=== PATIENT | female | born 1960 | race Caucasian/White ===

== ENCOUNTER → 2024-05-30 | Outpatient (CLI) | payer BC, SELFPAY ==
[2024-05-30 12:43] LABS: Basophils % (Auto) 1 % (0-2.5); Eosinophils # (Auto) 0.2 Thou/mm3 (0.0-0.5); Eosinophils % (Auto) 3 % (0-10); Hematocrit 43.2 % (36.0-46.0); Hemoglobin 14.6 g/dL (12.0-16.0); Immature Granulocytes % (Auto) 0 % (0-0); Immature Granulocytes Auto 0.01 Thou/mm3 (0.00-0.00); Lymphocytes # (Auto) 2.5 Thou/mm3 (1.0-4.8); Lymphocytes % (Auto) 42 % (10-50); Mean Corpuscular HGB Conc 33.8 g/dl (31.0-37.0); Mean Corpuscular Hemoglobin 29.7 pg (25.0-35.0); Mean Corpuscular Volume 88 fL (80-100); Monocytes # (Auto) 0.6 Thou/mm3 (0.0-0.8); Monocytes % (Auto) 10 % (0-12); Neutrophils # (Auto) 2.7 Thou/mm3 (1.8-7.7); Neutrophils % (Auto) 45 % (37-80); Nucleated Red Blood Cell % 0 /100 WBC (0); Platelet Count 263 Thou/mm3 (140-440); RDW Standard Deviation 42.5 fL (36.4-46.3); Red Blood Count 4.91 Miln/mm3 (4.00-5.20)
[2024-05-30 12:49] LABS: Glucose Estimated Average 126 mg/dL (80-131)
[2024-05-30 12:56] LABS: Alanine Aminotransferase 40 U/L (10-49); Albumin, Serum 4.4 gm/dL (3.4-4.8); Albumin/Globulin Ratio 1.6 (1.2-2.2); Alkaline Phosphatase 59 U/L (46-116); Anion Gap 10 (7-16); Aspartate Amino Transferase 32 U/L (0-34); BUN/Creatinine Ratio 20 Ratio (12-20); Bilirubin,Total 0.5 mg/dL (0.3-1.2); Blood Urea Nitrogen 14 mg/dL (9-23); Calcium 9.7 mg/dL (8.3-10.6); Calcium (Corrected) 9.7 mg/dL (8.5-10.1); Carbon Dioxide 26.9 mMol/L (20.0-31.0); Cardiac Risk Estimate 3.6 RATIO (3.7-5.6); Chloride 106 mMol/L (98-107); Cholesterol 205 mg/dL (132-200); Creatinine (Component) 0.7 mg/dL (0.6-1.3); Globulin 2.8 gm/dL (2.3-3.5); Glucose 105 mg/dL (74-106); HDL Cholesterol 57 mg/dL (40-60); LDL Cholesterol,Calculated 107 mg/dL (0-130); Osmolality,Calculated 285 (275-295); Potassium 4.1 mMol/L (3.4-5.1); Sodium 143 mMol/L (136-145); Total Protein 7.2 gm/dL (5.7-8.2); Triglycerides 204 mg/dL (30-150); eGFR > 60 See Note
[2024-05-30 12:57] LABS: Thyroid Stimulating Hormone 2.76 uIU/mL (0.55-4.78)
== END | disposition home or self-care (01) ==
LOC: COPL 11:10
PROVIDERS: PCP Internal Medicine; Referring Provider Internal Medicine; Visit Provider Internal Medicine
DX: I10 Essential (primary) hypertension (principal); R73.03 Prediabetes; R74.01 Elevation of levels of liver transaminase levels
CPT/HCPCS: 36415; 80053; 80061; 83036; 84443; 85025

== ENCOUNTER 2024-11-21 09:41 | Emergency (ER) | payer SELFPAY ==
[2024-11-21 09:42] VITALS: BP 189/111; PULSE 99; RESP 16; TEMP 36.8; O2SAT 95
[2024-11-21 09:43] VITALS: BMI 37.5
--- NOTE | 2024-11-21 09:51 | PD.EDMEDCL ---
ED Medical Clearance RME/HPI General Chief complaint: Medical Clearance Stated complaint: MEDICAL CLEARANCE Time Seen by Provider: 11/21/24 09:51 Arrival date/time: 11/21/24 09:41 Limitations: no limitations RME / HPI RME / HPI Narrative: 64 year old female with history of hypertension and medication noncompliance presents to the ED BIB [facility] for medical clearance for incarceration today. Per officers, blood pressure while in the [facility] intake was elevated and were advised to bring the patient to the ED for further evaluation/management. Per [facility] paperwork, blood pressure was 191/108, 189/112, 177/111, and 182/114. In the ED, patient only complains of her throat feeling dry. Otherwise no other associated symptoms or complaints reported. Denies fevers, chills, chest pain, cough, shortness of breath, abdominal pain, n/v/d, or urinary symptoms. Patient reports she previously was on multiple blood pressure medications and two that she can recall are Metropolol and Amlodipine. States she last took her 10mg Amlodipine this morning. Related Information Home Medications ?Medication ?Instructions ?Recorded ?Confirmed metoprolol succinate 100 mg 100 mg PO QDAY 05/21/19 05/21/19 tablet,extended release 24 hr Previous Rx's ?Medication ?Instructions ?Recorded amlodipine 10 mg tablet 10 mg PO QDAY HTN #30 tabs 07/04/20 azithromycin 250 mg tablet See Rx Instructions PO .COMPLEX #6 07/04/20 tabs etodolac 400 mg tablet 400 mg PO BID PRN pain #30 tabs 11/08/23 lidocaine 4 % topical patch 1 patch topical QDAY PRN pain #30 11/08/23 (Lidocaine Pain Relief) ea Allergies Allergy/AdvReac Type Severity Reaction Status Date / Time shrimp Allergy Severe SOB Verified 11/21/24 09:47 latex Allergy RASH Verified 11/21/24 09:47 glove powder Allergy Severe Rash Uncoded 11/08/23 14:32 Review of Systems Review of Systems Systems Reviewed: All systems reviewed, normal except as documented Past Medical History Past Medical History CARDIAC: Positive Cardiac Disorders and Hypertension; Negative Congestive Heart Failure RESPIRATORY: Negative Chronic Obstructive Pulmonary Disease (COPD) GENITOURINARY: Negative Renal Disease ENDOCRINE: Negative Diabetes Mellitus Type 1 or Diabetes Mellitus Type 2 Surgical History SURGICAL: Positive Section Social History SMOKING STATUS: Former smoker ED Exam General Limitations: Present no limitations General appearance: Present alert and in no apparent distress Head Head exam: Present atraumatic Eye Eye exam: Present normal appearance, PERRL and EOMI ENT ENT exam: Present normal exam, normal oropharynx and mucous membranes moist Neck Neck exam: Present normal inspection, full ROM and trachea midline Chest Chest inspection: Present normal inspection and symmetric chest wall rise Respiratory Respiratory exam: Present normal lung sounds bilaterally Cardiovascular Cardiovascular exam: Present regular rate, normal rhythm and normal heart sounds Extremities Exam Extremities exam: Present normal inspection and full ROM Neurological Exam Neurological exam: Present alert, oriented X3 and CN II-XII intact Psychiatric Psychiatric exam: Present normal affect and normal mood Skin Skin exam: Present warm, dry, intact and normal color Course Quality Measures none Orders Category Date Time Status Metoprolol Succinate Xl [Toprol Xl] Med 11/21/24 09:52 Discontinued 100 mg PO X1 ONE Vital Signs Vital signs: Vital Signs Temperature 98.2 F 11/21/24 09:42 Pulse Rate 99 11/21/24 09:42 Respiratory Rate 16 11/21/24 09:42 Blood Pressure 189/111 H 11/21/24 09:42 Pulse Oximetry (%) 95 11/21/24 09:42 Oxygen Delivery Method Room Air 11/21/24 09:42 Pulse ox is 95% on room air which is adequate. Medical Clearance [facility] Narrative MDM Narrative:: Lillian Osorio am scribing for and in the presence of Dr. Tom. Patient p/w elevated blood pressure, however, asymptomatic. Patient has not taken BP meds in some time. Given that she is asymptomatic, no FNDs, do not susupect HTN emergency, acs, dissection. Patient would like her home dose of blood pressure meds provided, and will follow up with pcp as an outpatient. Patient medically cleared for incarceration. Patient data External records reviewed:: [facility] previous records Clinical information provided by:: patient and law enforcement Social determinants that could affect healthcare access:: none Patient has the following chronic illnesses:: Hypertension, medication noncompliance How is presenting disease/condition affected by chronic disease/condition?: exacerbated by Evaluation data The following diagnostics were reviewed and interpreted by me:: other (specify) (No diagnostics ordered ) Lab and/or radiology exams considered but not ordered:: None Interpretation Summary: See MDM Medications / Prescriptions Medications or Prescriptions considered but not ordered:: None Medication administrations:: Medication Administration History Discontinued Medications Metoprolol Succinate (Metoprolol Succinate Xl 25 Mg Tabcr) 100 mg PO X1 ONE Stop: 11/21/24 09:53 Last Admin: 11/21/24 10:05 Dose: 100 mg Documented By: JAMES See [facility] Consultations Consultation(s) initiated? (list below): No Diagnosis Medical Clearance Differential Diagnosis: other (Hypertension, hypertensive urgency, hypertensive emergency, accelerated hypertension ) Most likely diagnosis given after review of the tests above:: Hypertension Admission Indicated Admission indicated?: not indicated Admission Request Was there a request for admission?: No Disposition Plan Disposition Plan: Discharge Discharge Attestation Discharge Attestation: The patient and all family members were given an opportunity to ask questions and understood the discharge instructions. Discharge instructions specifically effects, indications for sooner follow up or return to the emergency department, and the expected course of current diagnosis. Patient condition: Stable Discharge Plan Plan Patient Disposition: HOME (Self Care) Prescriptions/Referrals Prescriptions/Med Rec: No Action metoprolol succinate 100 mg tablet extended release 24 hr 100 mg PO QDAY azithromycin 250 mg tablet See Rx Instructions .ROUTE .COMPLEX Qty: 6 0RF Rx Instructions: take 500 mg today (day 1), then 250 mg for 4 days (days 2-5) amlodipine 10 mg tablet 10 mg PO QDAY Qty: 30 0RF etodolac 400 mg tablet 400 mg PO BID PRN (Reason: pain) Qty: 30 0RF lidocaine [Lidocaine Pain Relief] 4 % adhesive patch,medicated 1 patch topical QDAY PRN (Reason: pain) Qty: 30 0RF Problem List Clinical Impression: Hypertension Patient/Caregiver Discharge Instructions Education Materials: ED High Blood Pressure ... Additional Instructions: Please follow-up with your primary care doctor within 1 to 2 days. Please take your medications as prescribed. Return immediately if you have worsening symptoms or new symptoms of concern Print Language: Citizen [place] Stand Alone Forms: Gayle Award Info., Patient Portal Info Letter
[2024-11-21 10:05] VITALS: BP 156/106; PULSE 99
[2024-11-21] MEDS: METOPROLOL SUCCINATE XL 25 MG TABCR 100 MG PO (10:05)
[2024-11-21 10:27] VITALS: BP 156/106; PULSE 91
== END 2024-11-21 10:30 | disposition home or self-care (01) ==
LOC: SERX 10:35
PROVIDERS: Emergency Provider Emergency Medicine; PCP Internal Medicine
DX: Z02.89 Encounter for other administrative examinations (principal); I10 Essential (primary) hypertension; Z91.148 Patient's other noncompliance with medication regimen for other reason; Z87.891 Personal history of nicotine dependence
CPT/HCPCS: 99282; A9270